=== PATIENT | female | born 1985 | race Caucasian/White ===

== ENCOUNTER 2019-03-16 17:09 | Emergency (ER) | payer SELFPAY ==
[~2019-03-16] VITALS: Ht 162.6 cm; Wt 61.2 kg
[2019-03-16 18:16] LABS: Urine Bacteria FEW /hpf (None Seen); Urine Blood Negative /uL (Negative); Urine Specific Gravity 1.001 (1.001-1.035); Urine WBC 1 /hpf (0 - 5)
[2019-03-16 19:16] LABS: Basophils # (auto) 0.1 uL; Eosinophils # (auto) 0 uL; Eosinophils % (auto) 0.1 % (0.0-7.0); Hemoglobin 13.4 g/dL (12.2-16.2); Monocytes # (auto) 0.5 uL
[2019-03-16 19:18] LABS: Basophils % (auto) 0.8 % (0.0-2.0); Hematocrit 38.4 % (36.0-46.0); Lymphocytes % (auto) 15.2 % (10.0-50.0); Mean Corpuscular Hemoglobin 34.1 pg (28.0-32.0); Mean Corpuscular Volume 97.3 fL (80.0-100.0); Monocytes % (auto) 7.7 % (0.0-12.0); Neutrophils % (auto) 76.2 % (37.0-80.0); Platelet Count (auto) 267 10^3/uL (140-450); Red Blood Cells 3.94 10^6/uL (4.0-5.20); Red Cell Distribution Width 12.5 % (11.8-14.3); White Blood Cell 6.5 10^3/uL (4.4-10.8)
[2019-03-16 19:28] LABS: Albumin 4.1 g/dL (3.4-5.0); Calcium 8.3 mg/dL (8.5-10.1); Potassium 3.7 mmol/L (3.5-5.1)
[2019-03-16 19:31] LABS: BUN/Creatinine Ratio 8.3; Bilirubin, Total 0.6 mg/dL (0.2-1.0); Total Protein 7.6 g/dL (6.4-8.2)
[2019-03-16] MEDS ORDERED: POTASSIUM CHL 20 Meq TABLET PO ONE (20:00)
[2019-03-16] MEDS ORDERED: ONDANSETRON HCL 4 MG/2 ML VIAL IV ONE (20:00)
[2019-03-16] MEDS ORDERED: KETOROLAC TROMETH 30 MG/ML 1ML VIAL IV ONE (20:00)
[2019-03-16] MEDS ORDERED: SODIUM CHLORIDE 0.9% 2,000 ML IV ONE (20:00)
[2019-03-16] MEDS ORDERED: LOPERAMIDE HCL 2 MG CAP PO ONE (20:00)
[2019-03-16] MEDS ORDERED: PSEUDOEPHEDRINE HCL 30 MG TAB PO ONE (21:45)
[2019-03-16] MEDS ORDERED: ACETAMINOPHEN 500 MG TAB PO ONE (21:45)
[2019-03-16] MEDS ORDERED: diphenhdrAMINE HCL 50 MG/1 ML VL IV ONE (22:15)
[2019-03-17 00:02] LABS: BUN/Creatinine Ratio 7.5; Calcium 7.3 mg/dL (8.5-10.1)
[2019-03-17 00:14] VITALS: BP 109/70
[2019-03-17] MEDS ORDERED: SODIUM CHLORIDE 1 GM TAB PO ONE (00:30)
== END 2019-03-17 03:26 | disposition home or self-care (01) ==
LOC: ER 17:09 → EDBD 17:09 → ER 03-17 03:26
DX: K52.9 Noninfective gastroenteritis and colitis, unspecified (principal); J01.80 Other acute sinusitis; B97.89 Other viral agents as the cause of diseases classified elsewhere; E87.1 Hypo-osmolality and hyponatremia; E86.0 Dehydration; Z88.0 Allergy status to penicillin
CPT/HCPCS: 36415; 80048; 80053; 81001; 81025; 85025; 96361; 96374; 96375; 99284; J1200; J1885; J2405; J7030

== ENCOUNTER 2020-08-17 13:36 | Emergency (ER) | payer MEDICAID, OTHER ==
[~2020-08-17] VITALS: Ht 162.6 cm; Wt 59.0 kg
[2020-08-17] MEDS ORDERED: SODIUM CHLORIDE 0.9% 1,000 ML IV ONE (14:15)
[2020-08-17] MEDS ORDERED: ONDANSETRON HCL 4 MG/2 ML VIAL IV ONE (14:15)
[2020-08-17] MEDS ORDERED: PANTOPRAZOLE 40 MG/10 ML VIAL INJ IV ONE (14:15)
[2020-08-17 15:14] LABS: Basophils # (auto) 0.1 10 ^3/uL (0-0.2); Basophils % (auto) 0.7 % (0.0-2.0); Eosinophils # (auto) 0 10 ^3/uL (0-0.8); Eosinophils % (auto) 0.1 % (0.0-7.0); Hematocrit 36.7 % (36.0-46.0); Hemoglobin 12.6 g/dL (12.2-16.2); Lymphocytes # (auto) 1.3 10 ^3/uL (0.4-5.4); Lymphocytes % (auto) 12.3 % (10.0-50.0); Mean Corpuscular Hemoglobin 33.5 pg (28.0-32.0); Mean Corpuscular Hgb Conc. 34.3 g/dL (32.0-36.0); Mean Corpuscular Volume 97.5 fL (80.0-100.0); Monocytes # (auto) 0.8 10 ^3/uL (0-1.3); Monocytes % (auto) 7.4 % (0.0-12.0); Neutrophils # (auto) 8.3 10 ^3/uL (1.6-8.6); Neutrophils % (auto) 79.5 % (37.0-80.0); Nucleated Red Blood Cells % 0.1 %; Platelet Count (auto) 310 10^3/uL (140-450); Red Blood Cells 3.76 10^6/uL (4.0-5.20); White Blood Cell 10.5 10^3/uL (4.4-10.8)
[2020-08-17 15:28] LABS: Albumin 3.8 g/dL (3.4-5.0); Calcium 8.5 mg/dL (8.5-10.1); Magnesium 1.7 mg/dL (1.6-2.6); Potassium 4.2 mmol/L (3.5-5.1)
[2020-08-17 15:33] LABS: BUN/Creatinine Ratio 11.4; Bilirubin, Total 0.4 mg/dL (0.2-1.0); Total Protein 7.4 g/dL (6.4-8.2)
[2020-08-17 15:35] LABS: Urine Bacteria NONE SEEN /hpf (None Seen); Urine Blood 3+ /uL (Negative); Urine Specific Gravity 1.027 (1.001-1.035); Urine WBC 2 /hpf (0 - 5)
[2020-08-17] MEDS ORDERED: LORazepam 2MG/ML-1ML VIAL IV ONE (16:00)
[2020-08-17 16:35] VITALS: BP 108/68
== END 2020-08-17 17:02 | disposition home or self-care (01) ==
LOC: ER 13:36
DX: F10.239 Alcohol dependence with withdrawal, unspecified (principal); R11.2 Nausea with vomiting, unspecified; Z88.0 Allergy status to penicillin; Z32.02 Encounter for pregnancy test, result negative; Y90.8 Blood alcohol level of 240 mg/100 ml or more
CPT/HCPCS: 36415; 80053; 81001; 81025; 83735; 85025; 93005; 96361; 96374; 96375; 99284; C9113; J2060; J2405; J7030